=== PATIENT | male | born 1960 | race Caucasian/White ===

== ENCOUNTER 2020-10-30 15:40 | Outpatient (CLI) | payer OTHER, SELFPAY ==
--- NOTE | ~2020-10-30 | XR_ITS ---
EXAMINATION: XR hand RT min 3V INDICATION: Pain in the MCP joint of the third finger TECHNIQUE: Three views of the right hand are obtained on four radiographs. COMPARISON: None available FINDINGS: Bone alignment is normal. There is no fracture. There is mild osteoarthritis of the interph alangeal joints. Osteoarthritis is also noted at the third metacarpophalangeal joint. Metallic densit ies project in the soft tissues medial to the fifth proximal phalanx. IMPRESSION: 1. Mild osteoarthritis. Reviewed, dictated and finalized at location A. IMPRESSION: 1. Mild osteoarthritis.
== END 2020-10-30 15:41 | disposition home or self-care (01) ==
PROVIDERS: PCP Family Medicine; Visit Provider Nurse Practitioner Family
DX: M19.041 Primary osteoarthritis, right hand (principal)
CPT/HCPCS: 73130

== ENCOUNTER 2022-10-21 01:31 | Day surgery (SDC) | payer OTHER, SELFPAY ==
[2022-10-08 14:18] VITALS: BMI 29.9
[2022-10-21 07:15] VITALS: BP 120/67; PULSE 58; RESP 18; TEMP 36; O2SAT 99
[2022-10-21 07:15] LABS: Glucose Point of Care 92 mg/dl (65-105)
[2022-10-21] MEDS: LACTATED RINGERS 1,000 ML 150 ML IV CONT (07:17)
--- NOTE | 2022-10-21 07:29 | PM.HPGS ---
History of Present Illness History of Present Illness Consent: Risks, benefits, and alternatives have been discussed and questions answered. Patient agrees to proceed with procedure. Chief complaint: history of colon polyps Narrative: Gustavo Shanks is a 62 year old male Presents for screening colonoscopy. Patient's current weight appetite and bowel movements are normal. He denies abdominal pain. Patient has had no bleeding. Patient does have a prior history of colon polyps by colonoscopy 2015. Patient's family history is also significant for colon polyps in family member. Screening colonoscopy to be performed today. Review of Systems Review of Systems: Review of systems noncontributory. 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 BMI 29.0-29.9,adult BMI 30.0-30.9,adult Controlled diabetes mellitus type II without complication Glucose 107 with hemoglobin A1c 5.8 and micro albumin ratio of 4 on 08/13/2021. glucose 101 with hemoglobin A1c 5.7 and urine microalbumin ratio of 4 on 08/15/2022. Coronary artery disease Eczema Lower legs Encounter for prostate cancer screening PSA 1.14 on 08/15/2022. Hyperkalemia Potassium 4.8 08/15/2022 Metacarpophalangeal joint pain of right hand Mixed hyperlipidemia Total cholesterol 118, triglycerides 93, HDL 42, LDL 58 on 08/13/2021. cholesterol 133, HDL 44, triglycerides 96, LDL 71 on 08/15/2022. Obesity (BMI 30.0-34.9) Overweight (BMI 25.0-29.9) Polyp of colon tubular adenoma 08/06/2015. Screening for diabetic retinopathy no diabetic retinopathy on 08/05/2021 Seasonal allergic rhinitis Vitamin B12 deficiency anemia level normal at 1551 on 08/13/2021. Normal at 1670 on 08/15/2022 with hemoglobin 15.0. Family History Family History Mother Diabetes mellitus Father Alzheimer disease Grandparent Heart disease Grandparent Cancer Grandparent Cancer Social History Social History (Updated 09/16/22 @ 10:20 by Edilma Buenrostro MA) Smoking status: Never smoker Second hand tobacco smoke exposure: No Alcohol intake: never Alcohol use details: wine and beer rarely Substance use: never Substance use type: does not use Lack of Transportation: No Lack of Food: Never True Current Housing: I Have Housing Concerned About Future Housing: No Difficulty Paying Gas/Electric Bills: No Difficulty Paying for Meds: No Currently Unemployed: No Education: Trade/Vocational Certificate Difficulty w/ Childcare or Family Care: No Living arrangements: with family Spiritual care concerns: No Meds Home Medications and Allergies Home Medications Medication Instructions Recorded Confirmed Type aspirin 81 mg tablet,delayed 81 mg PO DAILY 06/28/19 10/21/22 History release (Adult Low Dose Aspirin) cholecalciferol (vitamin D3) 25 1,000 unit PO DAILY 06/28/19 10/21/22 History mcg (1,000 unit) tablet (Vitamin D3) cyanocobalamin (vitamin B-12) 1,000 mcg PO DAILY 06/28/19 10/21/22 History 1,000 mcg tablet (Vitamin B-12) fenofibric acid (choline) 135 mg 135 mg PO DAILY #90 caps 09/10/21 10/21/22 Rx capsule,delayed release metformin 500 mg tablet 500 mg PO BID #180 tabs 09/10/21 10/21/22 Rx atorvastatin 40 mg tablet 40 mg PO DAILY #90 tabs 04/07/22 10/21/22 Rx metoprolol tartrate 25 mg tablet 12.5 mg PO BID #90 tabs 04/07/22 10/21/22 Rx triamcinolone acetonide 0.5 % 1 applic topical .COMPLEX eczema 09/18/22 10/21/22 Rx topical cream #60 grams Allergies Allergy/AdvReac Type Severity Reaction Status Date / Time No Known Allergies Allergy Verified 10/21/22 07:14 Vital Signs Vital Signs - 24 hr 10/21/22 07:15 Temperature 96.8 F L Pulse Rate 58 L Respirat
--- NOTE | 2022-10-21 08:46 | WPDANESEPPF ---
Anes - Initial Pre Proc Eval Procedure: Operation Date: 10/21/22 08:45 Proposed Procedures p Colonoscopy - Reese Reynolds MD Date/Time: 10/21/22 08:46 Surgeon: Reese Reynolds MD Pre Op Diagnosis: history of colon polyps Patient Data Age: 62 Gender: M Height: 1.68 m Weight: 84.2 kg Last Vital Signs Temp 96.8 F L 10/21/22 07:15 Pulse 58 L 10/21/22 07:15 Resp 18 10/21/22 07:15 BP 120/67 10/21/22 07:15 Pulse Ox 99 10/21/22 07:15 O2 Del Method Room Air 10/21/22 07:15 Allergies Allergy/AdvReac Type Severity Reaction Status Date / Time No Known Allergies Allergy Verified 10/21/22 07:14 Home Medications Medication Instructions Recorded Confirmed Type aspirin 81 mg tablet,delayed 81 mg PO DAILY 06/28/19 10/21/22 History release (Adult Low Dose Aspirin) cholecalciferol (vitamin D3) 25 1,000 unit PO DAILY 06/28/19 10/21/22 History mcg (1,000 unit) tablet (Vitamin D3) cyanocobalamin (vitamin B-12) 1,000 mcg PO DAILY 06/28/19 10/21/22 History 1,000 mcg tablet (Vitamin B-12) fenofibric acid (choline) 135 mg 135 mg PO DAILY #90 caps 09/10/21 10/21/22 Rx capsule,delayed release metformin 500 mg tablet 500 mg PO BID #180 tabs 09/10/21 10/21/22 Rx atorvastatin 40 mg tablet 40 mg PO DAILY #90 tabs 04/07/22 10/21/22 Rx metoprolol tartrate 25 mg tablet 12.5 mg PO BID #90 tabs 04/07/22 10/21/22 Rx triamcinolone acetonide 0.5 % 1 applic topical .COMPLEX eczema 09/18/22 10/21/22 Rx topical cream #60 grams Laboratory Tests 10/21/22 07:12 POC Capillary Glucose 92 mg/dl (65-105) Patient hx anesthesia problems: none Family hx anesthesia problems: none Results Review: All pre-operative results and documents have been reviewed as part of the pre-operative evaluation. 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 BMI 29.0-29.9,adult BMI 30.0-30.9,adult Controlled diabetes mellitus type II without complication Glucose 107 with hemoglobin A1c 5.8 and micro albumin ratio of 4 on 08/13/2021. glucose 101 with hemoglobin A1c 5.7 and urine microalbumin ratio of 4 on 08/15/2022. Coronary artery disease Eczema Lower legs Encounter for prostate cancer screening PSA 1.14 on 08/15/2022. Hyperkalemia Potassium 4.8 08/15/2022 Metacarpophalangeal joint pain of right hand Mixed hyperlipidemia Total cholesterol 118, triglycerides 93, HDL 42, LDL 58 on 08/13/2021. cholesterol 133, HDL 44, triglycerides 96, LDL 71 on 08/15/2022. Obesity (BMI 30.0-34.9) Overweight (BMI 25.0-29.9) Polyp of colon tubular adenoma 08/06/2015. Screening for diabetic retinopathy no diabetic retinopathy on 08/05/2021 Seasonal allergic rhinitis Vitamin B12 deficiency anemia level normal at 1551 on 08/13/2021. Normal at 1670 on 08/15/2022 with hemoglobin 15.0. Family History Family History Mother Diabetes mellitus Father Alzheimer disease Grandparent Heart disease Grandparent Cancer Grandparent Cancer Social History Social History (Updated 09/16/22 @ 10:20 by Edilma Buenrostro MA) Smoking status: Never smoker Second hand tobacco smoke exposure: No Alcohol intake: never Alcohol use details: wine and beer rarely Substance use: never Substance use type: does not use Lack of Transportation: No Lack of Food: Never True Current Housing: I Have Housing Concerned About Future Housing: No Difficulty Paying Gas/Electric Bills: No Difficulty Paying for Meds: No Currently Unemployed: No Education: Trade/Vocational Certificate Difficulty w/ Childcare or Family Care: No Living arrangements: with family Spiritual care concerns: No Anes - Eval Final PreProcedure Day of Procedure
[2022-10-21 09:10] VITALS: BP 95/52; PULSE 53; RESP 22; O2SAT 100
[2022-10-21 09:20] VITALS: BP 95/56; PULSE 51; RESP 20; O2SAT 99
[2022-10-21 09:30] VITALS: BP 128/78; PULSE 46; RESP 20; O2SAT 98
== END 2022-10-21 09:40 | disposition home or self-care (01) ==
PROVIDERS: PCP Family Medicine; Visit Provider Internal Medicine Gastroenterology
PROC: 0DJD8ZZ Inspection of Lower Intestinal Tract, Via Natural or Artificial Opening Endoscopic (ICD-10-PCS; CPT 45378; principal; 2022-10-21 08:45)
DX: Z12.11 Encounter for screening for malignant neoplasm of colon (principal); Z86.010 Personal history of colon polyps; Z83.71 Family history of colonic polyps; I25.10 Atherosclerotic heart disease of native coronary artery without angina pectoris; E11.9 Type 2 diabetes mellitus without complications; E78.2 Mixed hyperlipidemia; D51.9 Vitamin B12 deficiency anemia, unspecified; Z95.1 Presence of aortocoronary bypass graft; E66.9 Obesity, unspecified; Z68.30 Body mass index [BMI] 30.0-30.9, adult; Z79.82 Long term (current) use of aspirin; Z79.84 Long term (current) use of oral hypoglycemic drugs
CPT/HCPCS: 45378; 82948; J2704; J7120

== ENCOUNTER 2023-12-03 16:47 | Emergency (ER) | payer OTHER, SELFPAY ==
[2023-12-03 16:55] VITALS: BP 139/79; PULSE 86; RESP 20; TEMP 36.6; O2SAT 99
--- NOTE | 2023-12-03 17:02 | ED.URI ---
HPI - URI/Sore Throat General Chief Complaint: Upper Respiratory Infection Stated Complaint: cold stuffy Time Seen by Provider: 12/03/23 17:03 Source: patient, RN notes reviewed and old records reviewed Mode of arrival: ambulatory Limitations: no limitations History of Present Illness HPI Narrative: 63 year old male accompanied by presents to express care with complaints of having stuffed up nose for 2 days then yesterday his symptoms increased with fever up to 102.5F, productive cough, nose burn, has headache some sore throat intermittently. Patient reports that he has had COVID and FLU shots this season. Patient reports that he has been taking Mucinex and also Tylenol for his fever with last dose around 1530 today. MD elicited complaint: fever, cough, sore throat, rhinorrhea, nasal congestion and sinus pain Onset (ago): day(s) (3) Consistency: progressively worsening Severity: moderate Description of mucous: yellow and green Able to tolerate fluids by mouth: Yes Treatments prior to arrival: acetaminophen and other (Mucinex) Related Data Home Medications Medication Instructions Recorded Confirmed aspirin 81 mg tablet,delayed 81 mg PO DAILY 06/28/19 12/03/23 release (Adult Low Dose Aspirin) Allergies Allergy/AdvReac Type Severity Reaction Status Date / Time No Known Allergies Allergy Verified 12/03/23 17:02 Review of Systems Review of Systems: CONSTITUTIONAL:Reports malaise, chills, sweats, or fever. EYES: Denies visual changes, redness, or discharge. ENT: Reports rhinorrhea, congestion, sinus pain, no otalgia and intermittent sore throat. CARDIOVASCULAR: Denies chest pain, palpitations, or edema. RESPIRATORY: Reports cough.? Denies dyspnea. GASTROINTESTINAL: Denies abdominal pain, nausea, vomiting, diarrhea SKIN: Denies rash or itching. MUSCULOSKELETAL: Denies myalgia. NEUROLOGIC: Denies headache. 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 BMI 28.0-28.9,adult BMI 29.0-29.9,adult BMI 30.0-30.9,adult Controlled diabetes mellitus type II without complication Glucose 107 with hemoglobin A1c 5.8 and micro albumin ratio of 4 on 08/13/2021. glucose 101 with hemoglobin A1c 5.7 and urine microalbumin ratio of 4 on 08/15/2022. Glucose 108 with hemoglobin A1c 6.1 with microalbumin negative on 09/22/2023. Coronary artery disease COVID-19 (06/28/23) tested positive 06/30/2023. Eczema Lower legs Encounter for prostate cancer screening PSA 1.14 on 08/15/2022. PSA 1.14 on 09/22/2023. Hyperkalemia Potassium 4.8 08/15/2022 Metacarpophalangeal joint pain of right hand Mixed hyperlipidemia Total cholesterol 118, triglycerides 93, HDL 42, LDL 58 on 08/13/2021. cholesterol 133, HDL 44, triglycerides 96, LDL 71 on 08/15/2022. Cholesterol 140, triglycerides 109, HDL 46, LDL 75 with ratio 3.0 on 09/22/2023. Obesity (BMI 30.0-34.9) Overweight (BMI 25.0-29.9) Polyp of colon tubular adenoma 08/06/2015. Normal colonoscopy 10/21/2022 with recheck in 5 years. Screening for diabetic retinopathy no diabetic retinopathy on 08/05/2021. No retinopathy 08/17/2023. Seasonal allergic rhinitis Vitamin B12 deficiency anemia level normal at 1551 on 08/13/2021. Normal at 1670 on 08/15/2022 with hemoglobin 15.0. Normal at 737 on 09/22/2023. Family History Family History Mother Diabetes mellitus Father Alzheimer disease Grandparent Heart disease Grandparent Cancer Grandparent Cancer Social History Social History Smoking status: Never smoker Second hand tobacco smoke exposure: No Alcohol intake: never A
== END 2023-12-03 17:25 | disposition home or self-care (01) ==
PROVIDERS: Emergency Provider Registered Nurse; PCP Family Medicine
DX: J01.90 Acute sinusitis, unspecified (principal); R05.1 Acute cough; I25.10 Atherosclerotic heart disease of native coronary artery without angina pectoris; Z95.1 Presence of aortocoronary bypass graft; E11.9 Type 2 diabetes mellitus without complications; E78.2 Mixed hyperlipidemia; E66.9 Obesity, unspecified; Z68.28 Body mass index [BMI] 28.0-28.9, adult; Z86.16 Personal history of COVID-19; Z79.82 Long term (current) use of aspirin
CPT/HCPCS: 99213; G0463